=== PATIENT | female | born 1995 | race African-American/Black ===

== ENCOUNTER 2017-05-07 11:45 | Emergency (ER) | payer MEDICAID ==
[2017-05-07 12:00] VITALS: BP 129/58
[2017-05-07] MEDS ORDERED: Ketorolac INJ* 30 MG/ML 1 ML VIAL IM ONE (12:29)
[2017-05-07] MEDS ORDERED: methylPREDNISolone 125 MG* 2 ML VIAL IM ONE (12:29)
--- NOTE | 2017-05-07 12:36 | UC ---
Cardiac HPI - HPI Summary HPI Summary: Chest pain right parasternal starting in the last few days that hurts more with any kind of movement such as turning head, raising arms, deep breaths. She had this once before Jul. I reviewed this chart. Her eval was negative. She says this is similar to prior and usually this resolves on its own. No prior personal or FH of PE or dvt. She is a non smoker and no OCP. She denies cough or fever. She has a pcp in [place] and she is going home on Friday and agrees to f/u and get evaluated. - History of Current Complaint Chief Complaint: UCChestPain Stated Complaint: CHEST PAIN Time Seen by Provider: 05/07/17 12:17 Hx Obtained From: Patient, Medical Records Hx Last Menstrual Period: 04/16/17 Onset/Duration: Gradual Onset, Lasting Days Timing: Constant Initial Severity: Moderate Current Severity: Moderate Chest Pain Location: Discrete at:, Right Anterior Character: Sharp/Stabbing Aggravating Factor(s): Position, Movement, Deep Breaths Alleviating Factor(s): Position Associated Signs & Symptoms: Positive: Negative - Allergy/Home Medications Allergies/Adverse Reactions: Allergies Allergy/AdvReac Type Severity Reaction Status Date / Time Penicillins Allergy Severe THROAT Verified 05/07/17 11:48 SWELLING Shellfish Allergy Allergy Severe THROAT Verified 05/07/17 11:48 CLOSES Shellfish-derived Products Allergy THROAT Verified 05/07/17 11:48 CLOSES PMH/Surg Hx/FS Hx/Imm Hx Previously Healthy: No - Prior episodes of costochondritis. - Surgical History Surgical History: Yes Surgery Procedure, Year, and Place: RIGHT QUADRACEPT BX, T&A, AXILLARY ABSCESS I &D, PILONIDAL CYSTECTOMY. VERTICAL SLEEVE GASTRECTOMY- 04/07 - Family History Known Family History: Positive: Other - sister has been getting chest pain as well. Family History: R & N/C - Social History Occupation: Student Alcohol Use: None Substance Use Type: None Smoking Status (MU): Never Smoked Tobacco Review of Systems Cardiovascular: Chest Pain All Other Systems Reviewed And Are Negative: Yes Physical Exam Triage Information Reviewed: Yes Appearance: Well-Appearing, No Pain Distress, Well-Nourished Vital Signs: Initial Vital Signs Temp 98 F 05/07/17 11:49 Pulse 68 05/07/17 11:49 Resp 18 05/07/17 11:49 BP 129/58 05/07/17 11:49 Pulse Ox 100 05/07/17 11:49 Vital Signs Reviewed: Yes Eyes: Positive: Conjunctiva Clear ENT Exam: Normal Neck exam: Normal Neck: Positive: Supple, Nontender, No Lymphadenopathy Respiratory Exam: Normal Respiratory: Positive: Lungs clear, Normal breath sounds, No accessory muscle use. Negative: Decreased breath sounds, Accessory muscle use, Crackles, Rhonchi , Stridor, Wheezing Cardiovascular: Positive: RRR, No Murmur, Pulses Normal, Brisk Capillary Refill Abdomen Description: Positive: Nontender, No Organomegaly Musculoskeletal: Positive: Strength Intact, ROM Intact, No Edema, Other: - There is right upper chest wall tenderness. It is reproducible and pinpoint. Neurological: Positive: Alert, Muscle Tone Normal. Negative: Fatigued Skin: Negative: rashes Diagnostics - EKG Cardiac Rate: NL Cardiac Rhythm: Sinus: Normal Ectopy: None ST Segment: Normal - Assessment/Plan Course Of Treatment: Today's episode is similar to prior. She is low risk for PE. There is no tachycardia and no signs of DVT. Neg homans and calf tenderness. Her exam is normal except for the reprocible chest pain. We will get ekg to eval for signs of pericardidits and chest x ray to search for chf and pneumothorax. Aneurysm considered but it does not radiate and this is very anterior. - Differential Diagnoses - Chest Pain Differential Diagnosis/HQI/PQRI: Acute MD, ACS, Angina, Aortic Aneurysm, CHF, Chest Wall, GI Disease, Lower Respiratory Infection, Pulmonary Edema, Pulmonary Embolism - Clinical Impression Provider Diagnoses: costochondritis. pleurisy. Discharge - Discharge Plan Condition: Good Disposition: HOME Prescriptions: Naproxen TAB* [Naprosyn 250 mg TAB*] 500 mg PO Q8H PRN #21 tab PRN Reason: Pain Patient Education Materials: Pleurisy (ED), Costochondritis (ED) Forms: *School Release Referrals: Non Staff,Doctor [Primary Care Provider] - Additional Instructions: Follow up with your doctor in [place] as we discussed to review this with them.
--- NOTE | 2017-05-07 13:33 | RAD ---
INDICATION: Right chest pain evaluate for pneumothorax. COMPARISON: Comparison is made with a prior chest x-ray study from every 2015. TECHNIQUE: Dual-energy PA and lateral views of the chest were obtained. FINDINGS: The heart is within normal limits in size. Mediastinal and hilar contours appear within normal limits. The lungs are clear. No pleural effusion or pneumothorax is seen. IMPRESSION: NO EVIDENCE FOR ACTIVE CARDIOPULMONARY DISEASE.
== END 2017-05-07 13:26 | disposition home or self-care (01) ==
LOC: UCCORT 11:45
DX: M94.0 Chondrocostal junction syndrome [Tietze] (principal); R09.1 Pleurisy; R00.1 Bradycardia, unspecified; Z32.02 Encounter for pregnancy test, result negative; Z98.84 Bariatric surgery status; Z88.0 Allergy status to penicillin
CPT/HCPCS: 71020; 84702; 93005; 96372; 99212; G0463; J1885; J2930

== ENCOUNTER 2017-11-02 21:21 | Emergency (ER) | payer OTHER ==
[2017-11-02 21:40] VITALS: BP 133/73
[2017-11-02] MEDS ORDERED: Ketorolac INJ* 60 MG/2 ML VIAL IM ONE (21:43)
--- NOTE | 2017-11-02 21:57 | UC ---
UC Dental HPI - HPI Summary HPI Summary: Having ongoing dental pain after wisdom teeth extraction. Hydrocodone has not been helpful. Pain is aching with some burning component. - History of Current Complaint Chief Complaint: UCDentalProblem Stated Complaint: DENTAL PAIN Hx Obtained From: Patient Hx Last Menstrual Period: end of September ?: No Onset/Duration: Sudden Onset, Lasting Days - 4, Worse Since - today Severity: Severe Pain Intensity: 10 Aggravating Factor(s): Chewing Alleviating Factor(s): Nothing Related History: Previous Dental Care on Same Tooth - Allergies/Home Medications Allergies/Adverse Reactions: Allergies Allergy/AdvReac Type Severity Reaction Status Date / Time Penicillins Allergy Swelling Verified 11/02/17 21:30 of throat shellfish derived Allergy Swelling Verified 11/02/17 21:30 of throat Home Medications: Home Medications Hydrocodone/Acetaminophen [Hydrocodone-Acetamin 5-325 mg] 1 tab PO Q4H PRN 11/02 [History Confirmed 11/02/17] PMH/Surg Hx/FS Hx/Imm Hx - Surgical History Surgical History: Yes Surgery Procedure, Year, and Place: RIGHT QUADRACEPT BX, T&A, AXILLARY ABSCESS I &D, PILONIDAL CYSTECTOMY. VERTICAL SLEEVE GASTRECTOMY- 04/07. wisdom tooth extraction. - Family History Known Family History: Positive: Cardiac Disease, Hypertension, Diabetes, Other - sister has been getting chest pain as well. Family History: R & N/C - Social History Occupation: Student Lives: Dormitory/Roommates Alcohol Use: None Substance Use Type: None Smoking Status (MU): Never Smoked Tobacco Review of Systems Constitutional: Chills ENT: Dental Pain Is Patient Immunocompromised?: No All Other Systems Reviewed And Are Negative: Yes Physical Exam Triage Information Reviewed: Yes Appearance: Well-Appearing, Pain Distress - Moderate, Obese Vital Signs: Initial Vital Signs Temp 98.1 F 11/02/17 21:33 Pulse 70 11/02/17 21:33 Resp 18 11/02/17 21:33 BP 133/73 11/02/17 21:33 Pulse Ox 100 11/02/17 21:33 Vital Signs Reviewed: Yes Eyes: Positive: Conjunctiva Clear ENT: Positive: Pharynx normal, TMs normal, Other - Difficulty opening jaw. Very tender with swelling over the wisdom teeth bilaterally. Dental: Positive: Other: - swelling in the cheeks over the wisdom teeth. Neck exam: Normal Respiratory Exam: Normal Cardiovascular Exam: Normal Musculoskeletal Exam: Normal Neurological Exam: Normal Psychological Exam: Normal Skin Exam: Normal Dental Complaint Course/Dx - Differential Dx/Diagnosis Differential Diagnosis/Dx: Dental Abscess, Fractured Tooth, Odontogenic Pain Provider Diagnoses: Odontogenic pain Discharge - Sign-Out/Discharge Documenting (check all that apply): Discharge/Admit/Transfer - Discharge Plan Condition: Stable Disposition: HOME Prescriptions: Gabapentin CAP(*) [Neurontin 300 CAP(*)] 300 mg PO TID PRN #60 cap PRN Reason: Dental pain Ketorolac TAB * [Toradol TAB *] 10 mg PO Q6H PRN #20 tab PRN Reason: Pain (Dental) Patient Education Materials: Toothache (ED), Gabapentin (By mouth), Ketorolac ( By mouth), Ketorolac (By injection) Referrals: Non Staff,Doctor [Primary Care Provider] - Additional Instructions: Follow up with the dentist early this week. - Billing Disposition and Condition Condition: STABLE Disposition: HOME
== END 2017-11-02 22:17 | disposition home or self-care (01) ==
LOC: UCCORT 21:21
DX: K08.89 Other specified disorders of teeth and supporting structures (principal); Z88.0 Allergy status to penicillin
CPT/HCPCS: 96372; 99212; G0463; J1885

== ENCOUNTER 2017-12-15 21:23 | Emergency (ER) | payer OTHER ==
[2017-12-15 21:40] VITALS: BP 137/76
[2017-12-15] MEDS ORDERED: Ondansetron TAB* 4 MG PO ONE (21:40)
--- NOTE | 2017-12-15 21:41 | UC ---
Nausea/Vomiting/Diarrhea HPI - HPI Summary HPI Summary: 22 year old female with no significant pmhx here with abdominal cramping and nausea and diarrhea for 3 days. Reports symptoms started few hours after eating a fish she left outside for few hours. Initially reports bloody diarrhea 4-5times/day, now completely watery with no vomiting. Reports abdominal cramping worsened, prompting her to come to the ED. She was seen in the ED yesterday, stool cx sent and blood work was done. She was not told of any abnormal results as far as he knows. No other complaints. No travel history. - History of Current Complaint Chief Complaint: UCGI Stated Complaint: NAUSEA,DIARRHEA,CRAMPS Time Seen by Provider: 12/15/17 21:28 Hx Last Menstrual Period: 12/13/17 Pain Intensity: 7 - Allergies/Home Medications Allergies/Adverse Reactions: Allergies Allergy/AdvReac Type Severity Reaction Status Date / Time Penicillins Allergy Swelling Verified 11/02/17 21:30 of throat shellfish derived Allergy Swelling Verified 11/02/17 21:30 of throat ibuprofen AdvReac See Comment Verified 11/02/17 22:14 PMH/Surg Hx/FS Hx/Imm Hx - Surgical History Surgical History: Yes Surgery Procedure, Year, and Place: RIGHT QUADRACEPT BX, T&A, AXILLARY ABSCESS I &D, PILONIDAL CYSTECTOMY. VERTICAL SLEEVE GASTRECTOMY- 04/07. wisdom tooth extraction. - Family History Known Family History: Positive: Cardiac Disease, Hypertension, Diabetes, Other - sister has been getting chest pain as well. Family History: R & N/C - Social History Alcohol Use: None Substance Use Type: Marijuana Smoking Status (MU): Never Smoked Tobacco Review of Systems Constitutional: Negative Skin: Negative Eyes: Negative ENT: Negative Respiratory: Negative Cardiovascular: Negative Gastrointestinal: Diarrhea, Nausea Genitourinary: Negative Motor: Negative Neurovascular: Negative Musculoskeletal: Negative Neurological: Negative Psychological: Negative All Other Systems Reviewed And Are Negative: Yes Physical Exam Triage Information Reviewed: Yes Vital Signs: Initial Vital Signs Temp 37.4 C 12/15/17 21:32 Pulse 66 12/15/17 21:32 Resp 20 12/15/17 21:32 BP 137/76 12/15/17 21:32 Pulse Ox 100 12/15/17 21:32 Vital Signs Reviewed: Yes ENT: Positive: Normal ENT inspection Neck exam: Normal Respiratory Exam: Normal Cardiovascular Exam: Normal Abdomen Description: Positive: Other: - diffusely tender, no guarding. Negative : Distended, Guarding Neurological Exam: Normal Skin Exam: Normal Naus/Vom/Diarrhea Course/Dx - Course Course Of Treatment: patient given zofran for nausea. She has nml vital signs, appears well hydrated. Non-toxic and well appearing. UA with +blood due to menestration cycle. Instructed patient to catch up with po intake and bananas as cramping could be due to hypokalemia. - Differential Dx/Diagnosis Differential Diagnoses - Female: Urinary Tract Infection, Enterocolitis, Gastroenteritis (Viral), Gastroenteritis (Bacterial), Gastritis Condition At Discharge: Good Discharge - Sign-Out/Discharge Documenting (check all that apply): Discharge/Admit/Transfer - Discharge Plan Condition: Good Disposition: HOME Prescriptions: Acetaminophen [Tylenol 8 Hour] 650 mg PO Q8HR #60 tablet.er Mag Hydrox/Aluminum Hyd/Simeth [Maalox Maximum Strength Susp] 30 ml PO Q8HR PRN #1 bottle PRN Reason: stomach cramping Patient Education Materials: Gastroenteritis (ED) Forms: *Work Release Referrals: Non Staff,Doctor [Primary Care Provider] - - Billing Disposition and Condition Condition: GOOD Disposition: Home
[2017-12-15] MEDS ORDERED: Ondansetron ODT TAB* 4 MG ONE (21:44)
[2017-12-15] MEDS ORDERED: Ondansetron ODT TAB* 4 MG PO ONE (21:45)
[2017-12-15] MEDS ORDERED: Al Hydrox/Mg Hydrox/Simet LIQ* 30 ML UDC PO ONE (21:57)
== END 2017-12-15 22:17 | disposition home or self-care (01) ==
LOC: UCCORT 21:23
DX: R11.0 Nausea (principal); R19.7 Diarrhea, unspecified; R10.9 Unspecified abdominal pain; Z88.0 Allergy status to penicillin; Z88.8 Allergy status to other drugs, medicaments and biological substances; Z91.013 Allergy to seafood
CPT/HCPCS: 81003; 84702; 99212; A9270-GY; G0463

== ENCOUNTER 2018-01-05 18:40 | Emergency (ER) | payer OTHER ==
[2018-01-05 19:05] VITALS: BP 141/78
--- NOTE | 2018-01-05 19:55 | UC ---
Dental HPI - HPI Summary HPI Summary: Patient presents to urgent care complaining of pain in her left lower dental area. Patient states she previously had infection of her having was tooth extracted approximately 3 months ago. Patient states this had completely improved. Patient states this morning she woke up with a little bit of discomfort. Patient states that the day progressed she has increased pain. Patient denies fevers or chills. Patient denies nausea or vomiting. Patient denies pain in her ear. No analgesic taken. Temperature makes it worse. Patient does not currently have a dentist.. Patient without concerns of Patient also reports she has had some falls over the last year. Last follow presently 4 months ago. Patient states she thought it was just she's clumsy. No loss of consciousness. Patient states sometimes though she does feel little lightheaded. Patient without any current complaints. Patient does not have a primary care provider. Patient denies chest pain or shortness of breath. Patient as well as her vomiting. Patient denies concern for . Patient does not drive. Patient does not climb heights. Patient does not swim. She with any concern for seizure activity. - History of Current Complaint Chief Complaint: UCDentalProblem Stated Complaint: DENTAL PAIN Time Seen by Provider: 01/05/18 19:00 Hx Obtained From: Patient Hx Last Menstrual Period: 12/13/17 Onset/Duration: Gradual Onset Pain Intensity: 10 Pain Scale Used: 0-10 Numeric - Allergies/Home Medications Allergies/Adverse Reactions: Allergies Allergy/AdvReac Type Severity Reaction Status Date / Time Penicillins Allergy Swelling Verified 01/05/18 18:59 of throat shellfish derived Allergy Swelling Verified 01/05/18 18:59 of throat ibuprofen AdvReac See Comment Verified 01/05/18 18:59 PMH/Surg Hx/FS Hx/Imm Hx Previously Healthy: Yes - Surgical History Surgical History: Yes Surgery Procedure, Year, and Place: RIGHT QUADRACEPT BX, T&A, AXILLARY ABSCESS I &D, PILONIDAL CYSTECTOMY. VERTICAL SLEEVE GASTRECTOMY- 04/07. wisdom tooth extraction. - Family History Known Family History: Positive: Cardiac Disease, Hypertension, Diabetes, Other - sister has been getting chest pain as well. Family History: R & N/C - Social History Occupation: Student Lives: With Family - TC. Alcohol Use: Rare Alcohol Amount: last week Substance Use Type: Marijuana Smoking Status (MU): Never Smoked Tobacco Review of Systems ENT: Dental Pain All Other Systems Reviewed And Are Negative: Yes Physical Exam - Summary Physical Exam Summary: Vital Signs Reviewed: Yes A+Ox3, no distress Eyes: Conjunctiva Clear, CLARISSE. EOM intact and full ENT: Hearing grossly normal TM x 2 clear, mmoist, uvula midline, no exudate, no erythema #18 TTP, mild edema, no drainage, no fluctance. TTP no obvious cavity. no intra-oral edema. Neck: Positive: Supple Respiratory: Positive: No respiratory distress, No accessory muscle use + CTA throughout no w/r Cardiovascular: RRR nl s1, s2 no m/r CBT <2 sec abd soft + BS nt/nd no guarding, no distension Musculoskeletal Exam: DANIEL x 4 without difficulty Strength Intact, ROM Intact Neurological: Positive: Alert, + sensation throughout Psychological: Positive: Normal Response To Family Skin: Positive: no rash, no ecchymosis Triage Information Reviewed: Yes Vital Signs: Initial Vital Signs Temp 98.1 F 01/05/18 18:59 Pulse 79 01/05/18 18:59 Resp 12 01/05/18 18:59 BP 141/78 01/05/18 18:59 Pulse Ox 100 01/05/18 18:59 Dental Complaint Course/Dx - Course Course Of Treatment: Patient with dental pain #17. Patient with mild edema and tenderness to palpation. No fluctuance. No intraoral edema. No difficulty with secretions. No facial swelling. Recommend patient started on clindamycin. Motrin/Tylenol for pain. (ibuprofen allergy is related to gastric sleeve surgery - no reaction) Ice to the face. Swish warm salt water. Patient given dental referral list. Patient comfortable and agreement with plan. Return precautions discussed. I spoke patient about her falling. Patient's fall and in over 4 months. Patient lost consciousness. Patient did Springle ankle 4 months ago but no other injuries. Will give patient referral to both the physician referral Center to establish a primary care patient. Patient also given information for care clinic. Patient does not drive swim blood per chest pain activities that are likely to cause injury to herself or others should she have an event. Patient instructed to emergency department if she doesn't lose consciousness or any other concerns. Patient comfortable in agreement with plan. Pt's BP mildly elevated - recommend establish with PCP and reassessment - Differential Dx/Diagnosis Provider Diagnoses: dental pain. history of falls Discharge - Sign-Out/Discharge Documenting (check all that apply): Patient Departure - Discharge Plan Condition: Stable Disposition: HOME Prescriptions: Clindamycin Cap(NF) [Clindamycin Cap 300 mg Cap(NF)] 300 mg PO TID #30 cap Patient Education Materials: Dental Abscess (ED) Referrals: [facility] [Outside] [facility] [Outside] No Primary Care Phys,NOPCP [Primary Care Provider] - Additional Instructions: -Okay to alternate ibuprofen (Advil, Motrin)600mg and Tylenol every 3 hours for pain. Take with food. Do NOT take for more than 4-5 days -Swish and spit with warm salt water 3-4 times a day -Take anitbiotics as prescribed until gone -Okay to apply cool packs to your outside cheek -Contact a clinic or go to the walk in clinic from the list provided to you today. If you develop swelling inside your mouth, difficulty with chewing or any other concerns it is recommended you go to the emergency department for further management - It is recommended you contact the physician referral center or the [facility] for assistance with a primary care provider - Billing Disposition and Condition Condition: STABLE Disposition: Home
== END 2018-01-05 19:54 | disposition home or self-care (01) ==
LOC: UCCORT 18:40
DX: K08.89 Other specified disorders of teeth and supporting structures (principal)
CPT/HCPCS: 99212; G0463